=== PATIENT | female | born 1995 | race Caucasian/White ===

== ENCOUNTER → 2017-03-19 | Outpatient (CLI) | payer BC | LOC: LAB 09:06 | DX: Z00.00 Encounter for general adult medical examination without abnormal findings (principal); E66.01 Morbid (severe) obesity due to excess calories; R73.01 Impaired fasting glucose ==

== ENCOUNTER → 2018-03-20 | Outpatient (CLI) | payer BC, OTHER ==
[2018-03-20 11:10] LABS: CALCIUM 9.2 mg/dL (8.4-10.2); POTASSIUM 4.3 mmol/L (3.6-5.0)
== END ==
LOC: LAB 10:50
PROVIDERS: Family Medicine
DX: R73.01 Impaired fasting glucose (principal); R20.2 Paresthesia of skin; E28.2 Polycystic ovarian syndrome

== ENCOUNTER 2018-05-12 06:10 | Emergency (ER) | payer BC, OTHER ==
[~2018-05-12] VITALS: Ht 172.7 cm; Wt 118.2 kg
[2018-05-12] MEDS ORDERED: GLUCOPHAGE PO (06:28)
[2018-05-12 07:07] LABS: EOS # 0.2 (0.04-0.40); EOS % 4.5 % (1.0-5.0); HEMATOCRIT 30.3 % (37.0-47.0); HEMOGLOBIN 8.7 g/dL (12.5-16.0); LYMPH# 1.8 (1.50-4.00); MEAN CELL VOLUME 68 fl (78-100); MEAN CORPUSCULAR HEMOGLOBIN 20 pg (27-31); MEAN CORPUSCULAR HGB CONC 29 g/dL (33-37); MEAN PLATELET VOLUME 10.3 fl (7.4-10.4); MONO # 0.3 (0.20-0.80); PLATELET COUNT 343 K/mm3 (130-400); RED BLOOD COUNT 4.45 M/mm3 (4.10-5.30); RED CELL DISTRIBUTION WIDTH 19.6 % (11.5-14.5); WHITE BLOOD COUNT 5.3 K/mm3 (4.8-10.8)
[2018-05-12 07:23] LABS: CALCIUM 8.7 mg/dL (8.4-10.2); POTASSIUM 3.7 mmol/L (3.6-5.0); TOTAL BILIRUBIN 0.4 mg/dL (0.2-1.3); TOTAL PROTEIN 7.4 g/dL (6.3-8.2)
[2018-05-12 08:13] LABS: PARTIAL THROMBOPLASTIN TIME 21.5 SECONDS (21.0-32.0); PROTHROMBIN TIME 9.8 SECONDS (9.0-12.0)
[2018-05-12 09:08] VITALS: BP 138/78
== END 2018-05-12 09:22 | disposition home or self-care (01) ==
LOC: ED 06:10
PROVIDERS: Nurse Practitioner
DX: K62.5 Hemorrhage of anus and rectum (principal); D64.9 Anemia, unspecified; R10.31 Right lower quadrant pain; R10.32 Left lower quadrant pain; E28.2 Polycystic ovarian syndrome; Z79.84 Long term (current) use of oral hypoglycemic drugs

== ENCOUNTER → 2020-01-12 | Outpatient (CLI) | payer OTHER ==
[~2020-01-12] MED LIST: GLUCOPHAGE PO
== END ==
LOC: LAB 12:00
DX: Z20.828 Contact with and (suspected) exposure to other viral communicable diseases (principal)

== ENCOUNTER → 2020-12-01 | Outpatient (CLI) | payer BC | LOC: RAD 16:08 | DX: R22.41 Localized swelling, mass and lump, right lower limb (principal) ==

== ENCOUNTER → 2021-02-25 | Outpatient (CLI) | payer OTHER | LOC: LAB 11:13 → EDSTATUS 16:07 | DX: U07.1 COVID-19 (principal) ==

== ENCOUNTER 2021-07-11 10:46 | Emergency (ER) | payer OTHER ==
[~2021-07-11] VITALS: Ht 172.7 cm; Wt 127.3 kg
[2021-07-11 11:25] LABS: BASO # 0.01 K/mm3 (0.02-0.10); EOS # 0.12 K/mm3 (0.04-0.40); EOS % 2.9 % (1.0-5.0); HEMATOCRIT 38.4 % (37.0-47.0); HEMOGLOBIN 12.2 g/dL (12.5-16.0); LYMPH# 1.32 K/mm3 (1.50-4.00); MEAN CELL VOLUME 84 fl (78-100); MEAN CORPUSCULAR HEMOGLOBIN 27 pg (27-31); MEAN CORPUSCULAR HGB CONC 32 g/dL (33-37); MONO # 0.35 K/mm3 (0.20-0.80); NEU # 2.32 K/mm3 (1.40-6.50); PLATELET COUNT 203 K/mm3 (130-400); RED BLOOD COUNT 4.55 M/mm3 (4.10-5.30); RED CELL DISTRIBUTION WIDTH 13.5 % (11.5-14.5); WHITE BLOOD COUNT 4.1 K/mm3 (4.8-10.8)
[2021-07-11 11:36] LABS: ALBUMIN 4.3 g/dL (3.5-5.0); POTASSIUM 3.8 mmol/L (3.5-5.1)
[2021-07-11 11:37] LABS: CALCIUM 8.4 mg/dL (8.3-10.5)
[2021-07-11 11:38] LABS: TOTAL PROTEIN 7.6 g/dL (6.4-8.3)
[2021-07-11 11:40] LABS: TOTAL BILIRUBIN 0.5 mg/dL (0.2-1.2)
[2021-07-11 13:32] VITALS: BP 135/78
== END 2021-07-11 13:32 | disposition home or self-care (01) ==
LOC: ED 10:46
PROVIDERS: Nurse Practitioner
DX: A08.4 Viral intestinal infection, unspecified (principal); E66.9 Obesity, unspecified; Z68.41 Body mass index [BMI] 40.0-44.9, adult; Z20.822 Contact with and (suspected) exposure to COVID-19

== ENCOUNTER → 2022-06-01 | Outpatient (CLI) | payer OTHER ==
[2022-06-01 11:02] LABS: HEMATOCRIT 33.8 % (37.0-47.0); HEMOGLOBIN 9.9 g/dL (12.5-16.0); MEAN PLATELET VOLUME 10.1 fl (7.4-10.4); RED BLOOD COUNT 4.83 M/mm3 (4.10-5.30); RED CELL DISTRIBUTION WIDTH 17.6 % (11.5-14.5); WHITE BLOOD COUNT 5.9 K/mm3 (4.8-10.8)
[2022-06-01 11:23] LABS: ALBUMIN 4.2 g/dL (3.5-5.0); POTASSIUM 4.2 mmol/L (3.5-5.1)
[2022-06-01 11:24] LABS: CALCIUM 9.3 mg/dL (8.3-10.5)
[2022-06-01 11:26] LABS: TOTAL PROTEIN 7.5 g/dL (6.4-8.3)
[2022-06-01 11:27] LABS: TOTAL BILIRUBIN 0.4 mg/dL (0.2-1.2)
== END ==
LOC: LAB 10:47
PROVIDERS: Family Medicine
DX: N92.1 Excessive and frequent menstruation with irregular cycle (principal); F41.1 Generalized anxiety disorder; R07.89 Other chest pain; M25.561 Pain in right knee

== ENCOUNTER 2022-06-07 09:05 | Outpatient (RCR) | payer OTHER | END 2022-06-28 | disposition still patient (30) | LOC: PT | DX: M25.561 Pain in right knee (principal) ==

== ENCOUNTER → 2022-08-23 | Outpatient (CLI) | payer OTHER | LOC: LAB 12:38 → EDSTATUS 12:40 | DX: F41.1 Generalized anxiety disorder (principal); E11.9 Type 2 diabetes mellitus without complications; K21.00 Gastro-esophageal reflux disease with esophagitis, without bleeding ==

== ENCOUNTER → 2023-08-27 | Outpatient (CLI) | payer OTHER ==
[2023-08-27 12:22] LABS: CALCIUM 9.6 mg/dL (8.3-10.5)
[2023-08-27 23:39] LABS: HEPATITIS C VIRUS ANTIBODY Negative (Negative)
== END ==
LOC: LAB 11:47
PROVIDERS: Family Medicine
DX: Z11.4 Encounter for screening for human immunodeficiency virus [HIV] (principal); Z11.59 Encounter for screening for other viral diseases; E11.9 Type 2 diabetes mellitus without complications

== ENCOUNTER → 2024-04-18 | Outpatient (CLI) | payer OTHER ==
[2024-04-18 14:52] LABS: HEMATOCRIT 43.4 % (37.0-47.0); HEMOGLOBIN 14.4 g/dL (12.5-16.0); RED BLOOD COUNT 5.24 M/mm3 (4.10-5.30); RED CELL DISTRIBUTION WIDTH 13.6 % (11.5-14.5); WHITE BLOOD COUNT 5.3 K/mm3 (4.8-10.8)
[2024-04-18 14:58] LABS: CALCIUM 9.6 mg/dL (8.3-10.5)
== END ==
LOC: LAB 14:40
PROVIDERS: Family Medicine
DX: E11.9 Type 2 diabetes mellitus without complications (principal); R53.83 Other fatigue

== ENCOUNTER → 2024-08-20 | Outpatient (CLI) | payer SELFPAY ==
[2024-08-20 16:33] LABS: CALCIUM 9.6 mg/dL (8.3-10.5)
== END ==
LOC: LAB 16:05
PROVIDERS: Family Medicine
DX: E11.9 Type 2 diabetes mellitus without complications (principal)